=== PATIENT | male | born 1940 | race Hispanic/Latino ===

== ENCOUNTER 2017-09-25 08:55 | Observation (INO) | payer MEDICARE ==
[2017-09-22 12:44] LABS: BASOPHILS # (AUTO) 0.1 (0.0-0.1); BASOPHILS % 0.5 % (0.0-1.0); EOSINOPHILS # (AUTO) 0.2 (0.0-0.4); EOSINOPHILS % 2.4 % (0.0-6.0); HEMATOCRIT 38.4 % (38.2-49.6); HEMOGLOBIN 12.1 g/dL (14.0-18.0); LYMPHOCYTES # (AUTO) 2.7 (1.0-3.2); LYMPHOCYTES % 26.2 % (18.0-39.1); MEAN CORPUSCULAR HEMOGLOBIN 25.3 pg (28-32); MEAN CORPUSCULAR HGB CONC 31.5 g/dL (31-35); MEAN CORPUSCULAR VOLUME 80.3 fL (81-99); MONOCYTES # (AUTO) 0.6 (0.2-0.8); MONOCYTES % 5.6 % (4.4-11.3); NEUTROPHILS # (AUTO) 6.6 (2.1-6.9); NEUTROPHILS % 64.9 % (38.7-80.0); PLATELET COUNT 433 x10e3/uL (140-360); RED BLOOD COUNT 4.78 x10e6/uL (4.3-5.7); RED CELL DISTRIBUTION WIDTH 14.7 % (11.7-14.4)
--- NOTE | 2017-09-22 12:55 | Diagnostic Imaging Report ---
PROCEDURE: Frontal and lateral views of the chest. COMPARISON: None. INDICATIONS: PREOPERATIVE CHEST XRAY FOR TURP FINDINGS: Lines/tubes: None. Lungs: The lungs are hyperinflated. No evidence of infection or pulmonary edema. Pleura: There is no pleural effusion or pneumothorax. Heart and mediastinum: The heart and the mediastinum are normal. Bones: Multilevel degenerative changes of the thoracic spine. IMPRESSION: 1. No acute cardiopulmonary disease. 2. Findings suggestive of COPD. Dictated by: Brenden iSlva M.D. on 09/22/2017 at 12:55 Electronically approved by: Brenden Silva M.D. on 09/22/2017 at 12:55
[2017-09-22 12:57] LABS: ANION GAP 14.1 mmol/L (8-16); BLOOD UREA NITROGEN 13 mg/dL (7-26); BUN/CREATININE RATIO 15 (6-25); CALCIUM 9.4 mg/dL (8.4-10.2); CARBON DIOXIDE 26 mmol/L (22-29); CHLORIDE 107 mmol/L (98-107); CREATININE, SERUM 0.87 mg/dL (0.72-1.25); EST GLOMERULAR FILTRATION RATE > 60 ML/MIN (60-); GLUCOSE 91 mg/dL (74-118); POTASSIUM 5.1 mmol/L (3.5-5.1); SODIUM 142 mmol/L (136-145)
[~2017-09-25] VITALS: Ht 167.6 cm; Wt 68.0 kg
--- OUTSIDE RECORDS SUMMARY | 2017-09-25 08:56 | XMS REPORT ---
[facility] Address Unknown Phone Unavailable Care Team Providers Care Garnishment Specialist Name Role Phone OH PENG Unavailable Unavailable Problems This patient has no known problems. Allergies, Adverse Reactions, Alerts This patient has no known allergies or adverse reactions. Medications This patient has no known medications. Encounters Start Date/Time End Date/Time Encounter Type Admission Type Attending [facility] Care Facility Care Department Encounter ID 2017-09-10 06:56:59 2017-09-10 06:56:59 Emergency [facility] [id number] 2017-09-09 20:47:12 2017-09-09 20:47:12 Emergency [facility] [id number] 2017-09-09 18:14:03 2017-09-09 18:14:03 Emergency [facility] [id number] Results Test Description Test Time Test Comments Text Results Atomic Results Result Comments CHEST 2 VIEWS [place] [address] Patient Name: LATASHA VALENCIA MR #: [id number] : 1940 Age/Sex: 77/M Req #: [id number] Adm Physician: Ordered by: OH PENG MD Report #: [id number] Location: OR Room/Bed: Procedure: [id number] DX/CHEST 2 VIEWS Exam Date: 09/22/17 Exam Time: 1200 REPORT STATUS: Signed PROCEDURE: Frontal and lateral views of the chest. COMPARISON: None. INDICATIONS: PREOPERATIVE CHEST XRAY FOR TURP FINDINGS: Lines/tubes: None. Lungs: The lungs are hyperinflated. No evidence of infection or pulmonary edema. Pleura: There is no pleural effusion or pneumothorax. Heart and mediastinum: The heart and the mediastinum are normal. Bones: Multilevel degenerative changes of the thoracic spine. IMPRESSION: 1. No acute cardiopulmonary disease. 2. Findings suggestive of COPD. Dictated by: Hayder Silva M.D. on 09/22/2017 at 12:55 Electronically approved by: Hayder Silva M.D. on 09/22/2017 at 12:55 Dictated By: HAYDER SILVA MD [id number] Transcribed By: SANAZ on 09/22/17 1255 COPY TO: OH PENG MD
[2017-09-25] MEDS ORDERED: STOOL SOFTENER PO (09:15)
[2017-09-25] MEDS ORDERED: CEFTRIAXONE SOD 1 GM VIAL ONE (09:27)
[2017-09-25] MEDS ORDERED: BELLADONNA/OPIUM 60 MG SUPP PR ONE (11:09)
[2017-09-25] MEDS ORDERED: DEXTROSE 5%/0.9% SOD CHL 1,000 ML IV ONE (13:15)
[2017-09-25] MEDS ORDERED: LEVOFLOXACIN 500 MG TAB PO ONE (13:15)
[2017-09-25] MEDS ORDERED: DEXTROSE 5%/0.45% SOD CHL 1,000 ML IV SCH (13:30)
[2017-09-25 15:28] VITALS: BP 179/80
[2017-09-25] MEDS ORDERED: LEVOFLOXACIN 500 MG TAB PO SCH (17:00)
[2017-09-25 17:30] VITALS: BP 179/80
[2017-09-25] MEDS ORDERED: DEXAMETHASONE SOD PHOS INJ 4 MG/ML VIAL ONE (18:17)
[2017-09-25] MEDS ORDERED: SEVOFLURANE INHAL SOLN 250 ML PEN BTL ONE (18:17)
[2017-09-25] MEDS ORDERED: PROPOFOL IV EMULSION 10 MG/ML 20 ML VIAL ONE (18:17)
[2017-09-25] MEDS ORDERED: ONDANSETRON HCL INJ 2 MG/ML VIAL ONE (18:17)
[2017-09-25] MEDS ORDERED: EPHEDRINE SULFATE INJ 50 MG/10 ML SYR ONE (18:17)
[2017-09-25] MEDS ORDERED: LIDOCAINE HCL 2% LOCAL INJ 5 ML SDV VIAL INJ ONE (18:17)
[2017-09-25] MEDS ORDERED: FENTANYL CITRATE/PF 100MCG/2 ML INJ ONE (18:32)
[2017-09-25] MEDS: HYDROCODONE/APAP 5MG-325MG TAB PO PRN (19:20)
[2017-09-25 20:00] VITALS: BP 137/68
[2017-09-26] VITALS: BP 121/61
[2017-09-26 04:00] VITALS: BP 158/72
[2017-09-26] MEDS: HYDROCODONE/APAP 5MG-325MG TAB PO PRN ×2 (05:25→12:26)
[2017-09-26 07:38] LABS: ANION GAP 11.7 mmol/L (8-16); BLOOD UREA NITROGEN 10 mg/dL (7-26); BUN/CREATININE RATIO 13 (6-25); CALCIUM 8.8 mg/dL (8.4-10.2); CARBON DIOXIDE 25 mmol/L (22-29); CHLORIDE 104 mmol/L (98-107); CREATININE, SERUM 0.79 mg/dL (0.72-1.25); EST GLOMERULAR FILTRATION RATE > 60 ML/MIN (60-); GLUCOSE 81 mg/dL (74-118); POTASSIUM 3.7 mmol/L (3.5-5.1); SODIUM 137 mmol/L (136-145)
[2017-09-26 08:11] VITALS: BP 145/70
[2017-09-26 08:15] VITALS: BP 145/70
[2017-09-26 11:56] VITALS: BP 112/61
[2017-09-26] MEDS ORDERED: LEVAQUIN500 MG PO (13:20)
[2017-09-26] MEDS ORDERED: FINASTERIDE5 MG PO (13:24)
--- NOTE | 2017-09-30 08:09 | Operative Report ---
DATE OF PROCEDURE: September 25, 2017 PREOPERATIVE DIAGNOSIS: Urinary retention. POSTOPERATIVE DIAGNOSIS: Urinary retention. OPERATIVE PROCEDURES PERFORMED 1. Cystoscopy. 2. Transurethral resection of prostate. ANESTHESIA: General anesthesia. ESTIMATED BLOOD LOSS: 100 mL. INDICATIONS: Mr. Clarence Roman is a 77-year-old gentleman with a history of recent urinary retention, which has failed multiple attempts at medical management. He now presents for definitive surgical management of this problem. PROCEDURE IN DETAIL: The patient was brought into the operating room and placed in the supine position. After administration of general anesthesia, he was placed in the dorsal lithotomy position, and prepped and draped in the usual sterile fashion. A cystourethroscopy was performed using a 21-Jordanian cystoscope. The anterior and posterior urethra were noted to be normal. 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 The bladder was entered with mild difficulty. Upon entrance into the bladder, the patient was noted to have grade 1-2 trabeculations throughout. The ureteral orifices were in their normal anatomical position, and produced clear efflux. Other than irritation in the region of the trigone and the dome from the Farnsworth balloon, there were no mucosa lesions identified. The bladder was left full, and the cystoscope and its sheath were removed. A 26-Jordanian resectoscope sheath was placed in a retrograde fashion. The Twitpay resectoscope was used to perform the procedure. Beginning at the 1 o'clock position and proceeding in a clockwise fashion down to the 6 o'clock position, all the adenomatous tissue between the bladder neck and the vera was resected down to the level of the surgical capsule. The large median lobe, which was also visualized was then resected again down to the level of the surgical capsule. An incomplete resection was performed on the patient's right side given the size of the gland and his age and the mild amount of bleeding that was encountered. Once adequate hemostasis was ensured, the RegalBox evacuator was used to remove all chips. Visualization of the bladder neck from the area revealed an open fossa. The bladder was left full, and the resectoscope and its sheath were removed. The patient was noted to have a brisk urinary flow with Coude. The urinary efflux was blood-tinged. A 24-Jordanian, 3-way catheter was then placed in a retrograde fashion, and balloon inflated with 45 mL of sterile water. The patient was started on continuous bladder irrigation, and returned to the supine position. Anesthesia was reversed. The patient was transferred to her bed and taken to the postanesthesia care unit in good condition. Of note, the needle and instrument count were correct at the conclusion of the case. Job#: [id number] EMERITA
== END 2017-09-26 15:13 | disposition home or self-care (01) ==
LOC: OR 08:55 → MED/SURG 14:35
PROVIDERS: ADMIT Urology; ATTEND Urology
DX: R33.9 Retention of urine, unspecified (principal)
CPT/HCPCS: 36415 ×2; 52630; 71046; 80048 ×2; 85025; 88305; 93005; G0378 ×2; J0696; J1100; J2001; J2405